=== PATIENT | female | born 1940 | race Caucasian/White ===

== ENCOUNTER 2018-07-06 20:26 | Inpatient (IN) | payer MEDICARE, MEDICAID ==
[~2018-07-06] VITALS: Ht 152.4 cm; Wt 36.4 kg
[~2018-07-06 20:26] MED LIST: ADV50100 IH; AMLO5TAB PO; CLOP75TA18 PO; HYDR-4353 PO; LEVO50TA67 PO; LOSA100T3 PO; METF500T PO; METF850T PO; MULT-342 PO; NITR0.4T SL; NITR0.4T51 SL; OMEP20CA10 PO; OXYC10TA57 PO; PANT-47 PO; PRAV10TA39 PO
[2018-07-06] MEDS ORDERED: normal saline 1000ml 1,000 ML IV ONE (20:35)
[2018-07-06] MEDS ORDERED: levoFLOXACIN-Levaquin 750MG/D5 150 ML IV ONE (20:35)
[2018-07-06 20:53] LABS: BASOPHILS % (AUTO) 0.4 % (0-1); EOSINOPHILS # (AUTO) 0.8 X10'3 (0-0.9); EOSINOPHILS % (AUTO) 10.3 % (0-6); HEMATOCRIT 37.6 % (35.0-45.0); HEMOGLOBIN 11.9 g/dl (12.0-16.0); LYMPHOCYTES # (AUTO) 2.4 X10'3 (1.1-4.8); LYMPHOCYTES % (AUTO) 29.3 % (21-51); MEAN CORPUSCULAR HEMOGLOBIN 24.9 PG (27.0-31.0); MEAN CORPUSCULAR HGB CONC 31.7 % (33.0-36.5); MEAN CORPUSCULAR VOLUME 78.5 FL (78-98); MEAN PLATELET VOLUME 8.4 FL (7.4-10.4); MONOCYTES # (AUTO) 0.9 X10'3 (0-0.9); MONOCYTES % (AUTO) 10.4 % (2-12); NEUTROPHILS # (AUTO) 4.1 X10'3 (1.8-7.7); NEUTROPHILS % (AUTO) 49.6 % (42-75); PLATELET COUNT 287 X10'3 (140-440); RED BLOOD COUNT 4.79 X10'6 (4.20-5.60); RED CELL DISTRIBUTION WIDTH 16.4 % (11.5-14.5); WHITE BLOOD COUNT 8.2 X10'3 (4.5-11.0)
[2018-07-06 21:15] LABS: ABG BASE EXCESS 0.4 mmol/L (-2.0-3.0); ABG HCO3 25.7 mmol/L (22.0-26.0); ABG OXYGEN SATURATION 97.8 % (95-98); ABG PCO2 (T) 43.3 mmHg (32.0-45.0); ABG PH (T) 7.389 (7.350-7.450); ABG PO2 (T) 107.2 mmHg (83-108); FCOHb 0.3 % (0.5-1.5); FLOW 2 L/min; FMetHb 0.1 % (0.3-1.12); FO2Hb 97.4 % (94-100); PATIENT TEMPERATURE 36.6; TOTAL HEMOGLOBIN 12.2 G/dl (12.0-16.0)
[2018-07-06 21:19] LABS: ALANINE AMINOTRANSFERASE 15 U/L (12-78); ALBUMIN 3.4 G/DL (3.4-5.0); ALKALINE PHOSPHATASE 113 IU/L (46-116); ANION GAP 5 (8-16); ASPARTATE AMINO TRANSFERASE 14 U/L (10-37); BILIRUBIN,TOTAL 0.3 MG/DL (0.1-1.0); BLOOD UREA NITROGEN 11 MG/DL (7-18); BUN/CREATININE RATIO 13.8 (6.6-38.0); CALCIUM 9.4 MG/DL (8.5-10.1); CHLORIDE 102 MMOL/L (99-107); GLUCOSE 238 MG/DL (70-104); MAGNESIUM 1.5 MG/DL (1.5-2.4); POTASSIUM 3.5 MMOL/L (3.5-5.1); SODIUM 140 MMOL/L (135-145); TOTAL PROTEIN 6.9 G/DL (6.4-8.2); eGFR 69 ML/MIN
[2018-07-06] MEDS ORDERED: methylPREDNISolone sod succ 125mg/2ml vial IV ONE (21:35)
[2018-07-06] MEDS ORDERED: albuterol 2.5 MG/3 ML nebule CONTNEB PRN (21:35)
[2018-07-06 21:36] LABS: PARTIAL THROMBOPLASTIN TIME 30 SECONDS (22-32); PROTHROMBIN TIME 10.5 SECONDS (9.0-12.0)
[2018-07-06 22:02] LABS: CLARITY,URINE CLEAR (Clear); COLOR,URINE YELLOW (Yellow); GLUCOSE, URINE 250 mg/dl (Neg); KETONES,URINE NEGATIVE (Neg); LEUKOCYTE ESTERASE ,URINE NEGATIVE (Neg); NITRITES, URINE NEGATIVE (Neg); OCCULT BLOOD,URINE NEGATIVE (Neg); PROTEIN,URINE NEGATIVE (Neg); UROBILINOGEN,URINE 0.2 E.U/dL (0.2-1.0)
[2018-07-06 22:08] LABS: UA COLLECTION TYPE STRAIGHT CATH
[2018-07-06] MEDS ORDERED: CARV3.126 PO (22:19)
[2018-07-06] MEDS ORDERED: mag hydrox/Alum hydrox/simeth 30ml oral suspension PO PRN (22:50)
[2018-07-06] MEDS ORDERED: ondansetron/PF 4mg/2ml inj IV PRN (22:50)
[2018-07-06] MEDS ORDERED: albuterol 2.5 MG/3 ML nebule NEB PRN (22:50)
[2018-07-06] MEDS ORDERED: magnesium hydroxide 30ml (MOM) UD suspension PO PRN (22:50)
[2018-07-06] MEDS ORDERED: acetaminophen 325mg tablet PO PRN (22:50)
[2018-07-06] MEDS ORDERED: glucagon, human recombinant 1mg kit SUBCUT PRN (22:55)
[2018-07-06] MEDS ORDERED: dextrose ORAL solution 15 GM/59 ML bottle PO PRN (22:55)
[2018-07-06] MEDS ORDERED: dextrose 50%-water 50ml dispensing syringe IV PRN ×2 (22:55)
[2018-07-06] MEDS ORDERED: MESSAGE TO PHARMACY PO ONE (22:55)
[2018-07-06] MEDS ORDERED: nitroGLYCERIN 0.4mg SUBLingual tab SL PRN (23:00)
[2018-07-06] MEDS: normal saline 1000ml 1,000 ML IV SCH (23:07)
[2018-07-06 23:16] LABS: HEMOGLOBIN A1C 7.4 % (4.5-6.2)
[2018-07-06 23:45] VITALS: BP 175/81
[2018-07-06] MEDS: HYDROcodone/acetaminophen 10/325mg tab PO SCH (23:58)
[2018-07-07 00:32] VITALS: BP 143/69
[2018-07-07] MEDS ORDERED: dextrose ORAL solution 15 GM/59 ML bottle PO PRN ×2 (00:35)
[2018-07-07] MEDS ORDERED: dextrose 50%-water 50ml dispensing syringe IV PRN ×2 (00:35)
[2018-07-07] MEDS ORDERED: insulin Lispro (HumaLOG) vial - multi-dose SQ SCH (00:35)
[2018-07-07] MEDS ORDERED: glucagon, human recombinant 1mg kit SUBCUT PRN (00:35)
[2018-07-07] MEDS ORDERED: albuterol 2.5 MG/3 ML nebule NEB SCH (03:00)
[2018-07-07] MEDS: HYDROcodone/acetaminophen 10/325mg tab PO SCH ×2 (04:00→08:00)
[2018-07-07 05:13] LABS: BASOPHILS % (AUTO) 0.3 % (0-1); EOSINOPHILS # (AUTO) 0.1 X10'3 (0-0.9); EOSINOPHILS % (AUTO) 1.5 % (0-6); HEMATOCRIT 36.5 % (35.0-45.0); HEMOGLOBIN 11.7 g/dl (12.0-16.0); LYMPHOCYTES # (AUTO) 0.7 X10'3 (1.1-4.8); MEAN CORPUSCULAR HEMOGLOBIN 25.1 PG (27.0-31.0); MEAN CORPUSCULAR VOLUME 78.6 FL (78-98); MEAN PLATELET VOLUME 9.1 FL (7.4-10.4); MONOCYTES # (AUTO) 0.1 X10'3 (0-0.9); MONOCYTES % (AUTO) 1.5 % (2-12); NEUTROPHILS # (AUTO) 5.1 X10'3 (1.8-7.7); NEUTROPHILS % (AUTO) 84.7 % (42-75); PLATELET COUNT 245 X10'3 (140-440); RED BLOOD COUNT 4.64 X10'6 (4.20-5.60); RED CELL DISTRIBUTION WIDTH 15.8 % (11.5-14.5)
[2018-07-07 05:49] LABS: ALANINE AMINOTRANSFERASE 14 U/L (12-78); ALBUMIN 3.4 G/DL (3.4-5.0); ALKALINE PHOSPHATASE 102 IU/L (46-116); ANION GAP 10 (8-16); ASPARTATE AMINO TRANSFERASE 14 U/L (10-37); BILIRUBIN,TOTAL 0.3 MG/DL (0.1-1.0); BLOOD UREA NITROGEN 10 MG/DL (7-18); BUN/CREATININE RATIO 11.8 (6.6-38.0); CHLORIDE 103 MMOL/L (99-107); CREATININE 0.85 MG/DL (0.40-0.90); GLUCOSE 253 MG/DL (70-104); SODIUM 142 MMOL/L (135-145); TOTAL CARBON DIOXIDE 29.5 MMOL/L (24-32); TOTAL PROTEIN 6.8 G/DL (6.4-8.2); eGFR 65 ML/MIN
[2018-07-07] MEDS ORDERED: magnesium 1gm/100ml D5W IVPB 100 ML IV PRN (06:05)
[2018-07-07] MEDS ORDERED: potassium Cl 20 mEq SR tablet PO PRN ×2 (06:05)
[2018-07-07] MEDS ORDERED: potassium Cl 40MEQ/NS 500ml 500 ML IV PRN (06:05)
[2018-07-07] MEDS ORDERED: magnesium 4gm in 100ml NS 100 ML IV PRN (06:05)
[2018-07-07 06:36] LABS: MAGNESIUM 1.4 MG/DL (1.5-2.4)
[2018-07-07] MEDS ORDERED: losartan 50mg tablet PO SCH (08:00)
[2018-07-07] MEDS ORDERED: oxyCODONE SR 10mg (sust. release) tab PO SCH (08:00)
[2018-07-07 08:09] VITALS: BP 132/60
[2018-07-07] MEDS ORDERED: albuterol 2.5 MG/3 ML nebule NEB PRN (08:10)
[2018-07-07] MEDS: heparin, porcine 5000 units/ml vial SQ SCH ×2 (08:18→21:27)
[2018-07-07] MEDS: methylPREDNISolone sod succ/PF 40mg inj. IV SCH ×2 (08:18→21:26)
[2018-07-07] MEDS: carVEDilol 3.125mg tablet PO SCH ×2 (08:20→21:25)
[2018-07-07] MEDS: amLODIPine 5mg tablet PO SCH (08:20)
[2018-07-07] MEDS: levoTHYROXINE 75mcg tablet PO SCH (08:20)
[2018-07-07] MEDS: insulin Lispro (HumaLOG) vial - multi-dose SQ SCH ×3 (08:47→19:33)
[2018-07-07] MEDS: potassium Cl 40MEQ/NS 500ml 500 ML IV PRN ×2 (08:53→17:16)
[2018-07-07] MEDS: magnesium Cl slow-release 64mg tablet PO PRN (08:54)
[2018-07-07] MEDS: BUDESONIDE 0.25 MG/2 ML AMPUL.NEB IH SCH ×2 (09:18→20:39)
[2018-07-07] MEDS ORDERED: HYDROcodone/acetaminophen 5mg/325mg tablet PO PRN (09:45)
[2018-07-07 11:00] VITALS: BP 123/56
[2018-07-07] MEDS: albuterol 2.5 MG/3 ML nebule NEB SCH ×2 (14:44→20:40)
[2018-07-07 18:00] VITALS: BP 118/55
[2018-07-07] MEDS ORDERED: insulin glargine (Lantus) pen - multi-dose SQ SCH (21:00)
[2018-07-07] MEDS: insulin glargine (Lantus) pen - multi-dose SQ SCH (21:21)
[2018-07-07] MEDS: atorvastatin 10mg tablet PO SCH (21:24)
[2018-07-07] MEDS: levoFLOXACIN-Levaquin 250mg/D5 50 ML IV SCH (22:41)
[2018-07-07 23:30] VITALS: BP 131/55
[2018-07-08] MEDS: magnesium Cl slow-release 64mg tablet PO PRN (01:41)
[2018-07-08] MEDS: albuterol 2.5 MG/3 ML nebule NEB SCH ×4 (02:47→20:29)
[2018-07-08] MEDS: normal saline 1000ml 1,000 ML IV SCH ×2 (03:03→23:45)
[2018-07-08 05:43] LABS: BASOPHILS % (AUTO) 0 % (0-1); EOSINOPHILS # (AUTO) 0.1 X10'3 (0-0.9); EOSINOPHILS % (AUTO) 1.4 % (0-6); HEMATOCRIT 31.5 % (35.0-45.0); HEMOGLOBIN 9.9 g/dl (12.0-16.0); LYMPHOCYTES # (AUTO) 0.6 X10'3 (1.1-4.8); LYMPHOCYTES % (AUTO) 6.3 % (21-51); MEAN CORPUSCULAR HEMOGLOBIN 24.9 PG (27.0-31.0); MEAN CORPUSCULAR HGB CONC 31.4 % (33.0-36.5); MEAN CORPUSCULAR VOLUME 79.4 FL (78-98); MEAN PLATELET VOLUME 9.1 FL (7.4-10.4); MONOCYTES # (AUTO) 0.4 X10'3 (0-0.9); MONOCYTES % (AUTO) 4.5 % (2-12); NEUTROPHILS # (AUTO) 8.7 X10'3 (1.8-7.7); NEUTROPHILS % (AUTO) 87.8 % (42-75); PLATELET COUNT 179 X10'3 (140-440); RED BLOOD COUNT 3.96 X10'6 (4.20-5.60); RED CELL DISTRIBUTION WIDTH 16.7 % (11.5-14.5); WHITE BLOOD COUNT 9.9 X10'3 (4.5-11.0)
[2018-07-08 06:05] LABS: ALANINE AMINOTRANSFERASE 12 U/L (12-78); ALBUMIN 2.8 G/DL (3.4-5.0); ALBUMIN/GLOBULIN RATIO 0.9 (1.1-1.5); ALKALINE PHOSPHATASE 90 IU/L (46-116); ANION GAP 5 (8-16); ASPARTATE AMINO TRANSFERASE 10 U/L (10-37); BILIRUBIN,TOTAL 0.2 MG/DL (0.1-1.0); BLOOD UREA NITROGEN 16 MG/DL (7-18); BUN/CREATININE RATIO 20.8 (6.6-38.0); CALCIUM 9.5 MG/DL (8.5-10.1); CHLORIDE 108 MMOL/L (99-107); CREATININE 0.77 MG/DL (0.40-0.90); GLUCOSE 217 MG/DL (70-104); MAGNESIUM 1.9 MG/DL (1.5-2.4); POTASSIUM 4.7 MMOL/L (3.5-5.1); SODIUM 142 MMOL/L (135-145); TOTAL CARBON DIOXIDE 29.1 MMOL/L (24-32); TOTAL PROTEIN 5.8 G/DL (6.4-8.2); eGFR 72 ML/MIN
[2018-07-08 07:00] VITALS: BP 142/58
[2018-07-08] MEDS: levoTHYROXINE 75mcg tablet PO SCH (07:35)
[2018-07-08] MEDS: carVEDilol 3.125mg tablet PO SCH ×2 (07:35→20:20)
[2018-07-08] MEDS: heparin, porcine 5000 units/ml vial SQ SCH ×2 (07:35→20:21)
[2018-07-08] MEDS: methylPREDNISolone sod succ/PF 40mg inj. IV SCH ×2 (07:35→20:21)
[2018-07-08] MEDS: losartan 50mg tablet PO SCH (07:35)
[2018-07-08] MEDS: amLODIPine 5mg tablet PO SCH (07:35)
[2018-07-08] MEDS: insulin Lispro (HumaLOG) vial - multi-dose SQ SCH ×3 (08:27→18:41)
[2018-07-08] MEDS: BUDESONIDE 0.25 MG/2 ML AMPUL.NEB IH SCH ×2 (08:52→20:29)
[2018-07-08 11:00] VITALS: BP 114/73
[2018-07-08 20:00] VITALS: BP 152/63
[2018-07-08] MEDS: dextrose ORAL solution 15 GM/59 ML bottle PO PRN (20:16)
[2018-07-08] MEDS: atorvastatin 10mg tablet PO SCH (20:20)
[2018-07-08] MEDS: insulin glargine (Lantus) pen - multi-dose SQ SCH (21:00)
[2018-07-08] MEDS: levoFLOXACIN-Levaquin 250mg/D5 50 ML IV SCH (21:55)
[2018-07-09] VITALS: BP 152/70
[2018-07-09] MEDS: albuterol 2.5 MG/3 ML nebule NEB SCH ×4 (02:32→19:57)
[2018-07-09 05:50] LABS: BASOPHILS % (AUTO) 0 % (0-1); EOSINOPHILS # (AUTO) 0.1 X10'3 (0-0.9); EOSINOPHILS % (AUTO) 1.7 % (0-6); HEMATOCRIT 35.8 % (35.0-45.0); HEMOGLOBIN 11.4 g/dl (12.0-16.0); LYMPHOCYTES # (AUTO) 0.6 X10'3 (1.1-4.8); LYMPHOCYTES % (AUTO) 7.4 % (21-51); MEAN CORPUSCULAR HGB CONC 31.9 % (33.0-36.5); MEAN CORPUSCULAR VOLUME 78.5 FL (78-98); MEAN PLATELET VOLUME 9.4 FL (7.4-10.4); MONOCYTES # (AUTO) 0.3 X10'3 (0-0.9); MONOCYTES % (AUTO) 3.4 % (2-12); NEUTROPHILS # (AUTO) 7.6 X10'3 (1.8-7.7); NEUTROPHILS % (AUTO) 87.5 % (42-75); PLATELET COUNT 186 X10'3 (140-440); RED BLOOD COUNT 4.56 X10'6 (4.20-5.60); RED CELL DISTRIBUTION WIDTH 16.7 % (11.5-14.5); WHITE BLOOD COUNT 8.7 X10'3 (4.5-11.0)
[2018-07-09 06:06] LABS: ALANINE AMINOTRANSFERASE 15 U/L (12-78); ALBUMIN 3.1 G/DL (3.4-5.0); ALBUMIN/GLOBULIN RATIO 0.9 (1.1-1.5); ALKALINE PHOSPHATASE 96 IU/L (46-116); ANION GAP 8 (8-16); ASPARTATE AMINO TRANSFERASE 13 U/L (10-37); BILIRUBIN,TOTAL 0.3 MG/DL (0.1-1.0); BLOOD UREA NITROGEN 15 MG/DL (7-18); CALCIUM 8.9 MG/DL (8.5-10.1); CHLORIDE 103 MMOL/L (99-107); GLUCOSE 264 MG/DL (70-104); MAGNESIUM 1.7 MG/DL (1.5-2.4); POTASSIUM 3.5 MMOL/L (3.5-5.1); SODIUM 140 MMOL/L (135-145); TOTAL CARBON DIOXIDE 29.4 MMOL/L (24-32); TOTAL PROTEIN 6.4 G/DL (6.4-8.2); eGFR 53 ML/MIN
[2018-07-09 07:18] VITALS: BP 167/66
[2018-07-09] MEDS: BUDESONIDE 0.25 MG/2 ML AMPUL.NEB IH SCH ×2 (07:27→19:57)
[2018-07-09] MEDS: levoTHYROXINE 75mcg tablet PO SCH (07:53)
[2018-07-09] MEDS: amLODIPine 5mg tablet PO SCH (07:53)
[2018-07-09] MEDS: carVEDilol 3.125mg tablet PO SCH ×2 (07:53→20:33)
[2018-07-09] MEDS: losartan 50mg tablet PO SCH (07:53)
[2018-07-09] MEDS: heparin, porcine 5000 units/ml vial SQ SCH ×2 (07:54→20:33)
[2018-07-09] MEDS: methylPREDNISolone sod succ/PF 40mg inj. IV SCH (08:17)
[2018-07-09] MEDS: insulin Lispro (HumaLOG) vial - multi-dose SQ SCH ×3 (08:22→18:33)
[2018-07-09 12:10] VITALS: BP 156/75
[2018-07-09] MEDS: normal saline 1000ml 1,000 ML IV SCH (17:46)
[2018-07-09 20:00] VITALS: BP 162/67
[2018-07-09] MEDS: lactobacillus rhamnosus 10,000 MMU CELLS/CAPSULE PO SCH (20:33)
[2018-07-09] MEDS: atorvastatin 10mg tablet PO SCH (20:33)
[2018-07-09] MEDS: insulin glargine (Lantus) pen - multi-dose SQ SCH (20:36)
[2018-07-10] VITALS (7 sets, daily range): BP systolic 139–163; BP diastolic 70–76
[2018-07-10] MEDS: albuterol 2.5 MG/3 ML nebule NEB SCH ×4 (02:00→19:51)
[2018-07-10 05:34] LABS: BASOPHILS % (AUTO) 0.2 % (0-1); EOSINOPHILS # (AUTO) 0.2 X10'3 (0-0.9); EOSINOPHILS % (AUTO) 1.4 % (0-6); HEMATOCRIT 35.6 % (35.0-45.0); HEMOGLOBIN 11.3 g/dl (12.0-16.0); LYMPHOCYTES # (AUTO) 4.1 X10'3 (1.1-4.8); LYMPHOCYTES % (AUTO) 31.9 % (21-51); MEAN CORPUSCULAR HEMOGLOBIN 24.7 PG (27.0-31.0); MEAN CORPUSCULAR HGB CONC 31.7 % (33.0-36.5); MEAN CORPUSCULAR VOLUME 77.9 FL (78-98); MEAN PLATELET VOLUME 9.2 FL (7.4-10.4); MONOCYTES # (AUTO) 1.2 X10'3 (0-0.9); MONOCYTES % (AUTO) 9.3 % (2-12); NEUTROPHILS # (AUTO) 7.3 X10'3 (1.8-7.7); NEUTROPHILS % (AUTO) 57.2 % (42-75); PLATELET COUNT 235 X10'3 (140-440); RED BLOOD COUNT 4.57 X10'6 (4.20-5.60); RED CELL DISTRIBUTION WIDTH 16.5 % (11.5-14.5); WHITE BLOOD COUNT 12.7 X10'3 (4.5-11.0)
[2018-07-10 05:48] LABS: ALANINE AMINOTRANSFERASE 12 U/L (12-78); ALBUMIN 2.8 G/DL (3.4-5.0); ALKALINE PHOSPHATASE 84 IU/L (46-116); ANION GAP 4 (8-16); ASPARTATE AMINO TRANSFERASE 9 U/L (10-37); BILIRUBIN,TOTAL 0.3 MG/DL (0.1-1.0); BLOOD UREA NITROGEN 14 MG/DL (7-18); BUN/CREATININE RATIO 21.5 (6.6-38.0); CHLORIDE 105 MMOL/L (99-107); CREATININE 0.65 MG/DL (0.40-0.90); GLUCOSE 56 MG/DL (70-104); MAGNESIUM 1.7 MG/DL (1.5-2.4); POTASSIUM 3.1 MMOL/L (3.5-5.1); SODIUM 142 MMOL/L (135-145); TOTAL CARBON DIOXIDE 33.3 MMOL/L (24-32); TOTAL PROTEIN 5.7 G/DL (6.4-8.2); eGFR 88 ML/MIN
[2018-07-10] MEDS: dextrose ORAL solution 15 GM/59 ML bottle PO PRN (07:07)
[2018-07-10] MEDS: levoTHYROXINE 75mcg tablet PO SCH (07:32)
[2018-07-10] MEDS: BUDESONIDE 0.25 MG/2 ML AMPUL.NEB IH SCH ×2 (08:14→19:51)
[2018-07-10] MEDS: lactobacillus rhamnosus 10,000 MMU CELLS/CAPSULE PO SCH ×2 (08:41→21:05)
[2018-07-10] MEDS: losartan 50mg tablet PO SCH (08:41)
[2018-07-10] MEDS: carVEDilol 3.125mg tablet PO SCH ×2 (08:41→21:04)
[2018-07-10] MEDS: predniSONE 20 mg tablet PO SCH (08:41)
[2018-07-10] MEDS: amLODIPine 5mg tablet PO SCH (08:41)
[2018-07-10] MEDS: heparin, porcine 5000 units/ml vial SQ SCH ×2 (08:42→21:05)
[2018-07-10] MEDS: levoFLOXACIN 250mg tablet PO SCH (10:50)
[2018-07-10] MEDS ORDERED: magnesium 1gm/100ml D5W IVPB 100 ML IV PRN (11:30)
[2018-07-10] MEDS ORDERED: magnesium 4gm in 100ml NS 100 ML IV PRN (11:30)
[2018-07-10] MEDS ORDERED: potassium Cl 20 mEq SR tablet PO PRN (11:30)
[2018-07-10] MEDS ORDERED: potassium Cl 40MEQ/NS 500ml 500 ML IV PRN ×2 (11:30)
[2018-07-10] MEDS ORDERED: magnesium Cl slow-release 64mg tablet PO PRN (11:30)
[2018-07-10] MEDS: potassium Cl 20 mEq SR tablet PO PRN ×3 (11:55→21:04)
[2018-07-10] MEDS ORDERED: albuterol 2.5 MG/3 ML nebule NEB ONE (12:35)
[2018-07-10] MEDS: insulin Lispro (HumaLOG) vial - multi-dose SQ SCH ×2 (13:38→19:19)
[2018-07-10] MEDS: normal saline 1000ml 1,000 ML IV SCH (15:17)
[2018-07-10] MEDS: insulin glargine (Lantus) pen - multi-dose SQ SCH (21:04)
[2018-07-10] MEDS: atorvastatin 10mg tablet PO SCH (21:05)
[2018-07-11] MEDS: albuterol 2.5 MG/3 ML nebule NEB SCH ×2 (01:56→07:04)
[2018-07-11 05:51] LABS: BASOPHILS % (AUTO) 0.2 % (0-1); EOSINOPHILS # (AUTO) 0.2 X10'3 (0-0.9); EOSINOPHILS % (AUTO) 1.8 % (0-6); HEMATOCRIT 36.2 % (35.0-45.0); HEMOGLOBIN 11.6 g/dl (12.0-16.0); LYMPHOCYTES # (AUTO) 3.2 X10'3 (1.1-4.8); LYMPHOCYTES % (AUTO) 36.6 % (21-51); MEAN CORPUSCULAR HGB CONC 32.2 % (33.0-36.5); MEAN CORPUSCULAR VOLUME 77.6 FL (78-98); MEAN PLATELET VOLUME 9.3 FL (7.4-10.4); MONOCYTES # (AUTO) 0.8 X10'3 (0-0.9); MONOCYTES % (AUTO) 9.6 % (2-12); NEUTROPHILS # (AUTO) 4.5 X10'3 (1.8-7.7); NEUTROPHILS % (AUTO) 51.8 % (42-75); PLATELET COUNT 181 X10'3 (140-440); RED BLOOD COUNT 4.67 X10'6 (4.20-5.60); RED CELL DISTRIBUTION WIDTH 16.5 % (11.5-14.5); WHITE BLOOD COUNT 8.8 X10'3 (4.5-11.0)
[2018-07-11 06:19] LABS: ALANINE AMINOTRANSFERASE 15 U/L (12-78); ALBUMIN 2.7 G/DL (3.4-5.0); ALBUMIN/GLOBULIN RATIO 0.9 (1.1-1.5); ALKALINE PHOSPHATASE 82 IU/L (46-116); ANION GAP 4 (8-16); ASPARTATE AMINO TRANSFERASE 10 U/L (10-37); BILIRUBIN,TOTAL 0.4 MG/DL (0.1-1.0); BLOOD UREA NITROGEN 16 MG/DL (7-18); BUN/CREATININE RATIO 21.1 (6.6-38.0); CALCIUM 9.3 MG/DL (8.5-10.1); CHLORIDE 105 MMOL/L (99-107); CREATININE 0.76 MG/DL (0.40-0.90); GLUCOSE 109 MG/DL (70-104); POTASSIUM 4.1 MMOL/L (3.5-5.1); SODIUM 141 MMOL/L (135-145); TOTAL CARBON DIOXIDE 31.9 MMOL/L (24-32); TOTAL PROTEIN 5.6 G/DL (6.4-8.2); eGFR 73 ML/MIN
[2018-07-11 07:00] VITALS: BP 157/74
[2018-07-11] MEDS: BUDESONIDE 0.25 MG/2 ML AMPUL.NEB IH SCH (07:04)
[2018-07-11] MEDS: amLODIPine 5mg tablet PO SCH (08:13)
[2018-07-11] MEDS: levoTHYROXINE 75mcg tablet PO SCH (08:13)
[2018-07-11] MEDS: carVEDilol 3.125mg tablet PO SCH (08:13)
[2018-07-11] MEDS: predniSONE 20 mg tablet PO SCH (08:13)
[2018-07-11] MEDS: losartan 50mg tablet PO SCH (08:13)
[2018-07-11] MEDS: lactobacillus rhamnosus 10,000 MMU CELLS/CAPSULE PO SCH (08:13)
[2018-07-11] MEDS: heparin, porcine 5000 units/ml vial SQ SCH (08:14)
[2018-07-11] MEDS ORDERED: ALBU8.5H8 INH (09:26)
[2018-07-11] MEDS ORDERED: LEVO250T58 PO (09:26)
[2018-07-11] MEDS ORDERED: TIOT18CA3 IH (09:26)
[2018-07-11] MEDS ORDERED: PRED20TA PO (09:26)
[2018-07-11] MEDS ORDERED: GUAI600T45 PO (09:26)
[2018-07-11] MEDS: levoFLOXACIN 250mg tablet PO SCH (11:12)
== END 2018-07-11 11:20 | disposition home or self-care (01) | DRG 190 ==
LOC: ER 20:27 → ED HOLD 22:50 → SUR 3N 23:26
PROVIDERS: ADMIT Internal Medicine; ATTEND Internal Medicine
DX: J44.1 Chronic obstructive pulmonary disease with (acute) exacerbation (principal); E43 Unspecified severe protein-calorie malnutrition; Z68.1 Body mass index [BMI] 19.9 or less, adult; J96.11 Chronic respiratory failure with hypoxia; E87.6 Hypokalemia; E83.42 Hypomagnesemia; D63.8 Anemia in other chronic diseases classified elsewhere; E03.9 Hypothyroidism, unspecified; R41.89 Other symptoms and signs involving cognitive functions and awareness; R11.2 Nausea with vomiting, unspecified; E11.9 Type 2 diabetes mellitus without complications; E78.5 Hyperlipidemia, unspecified; I10 Essential (primary) hypertension; Z90.3 Acquired absence of stomach [part of]; Z99.81 Dependence on supplemental oxygen; Z79.899 Other long term (current) drug therapy; Z85.028 Personal history of other malignant neoplasm of stomach; Z86.73 Personal history of transient ischemic attack (TIA), and cerebral infarction without residual deficits; Z87.01 Personal history of pneumonia (recurrent); Z87.891 Personal history of nicotine dependence
CPT/HCPCS: 36415; 36600; 71045; 80053; 81003; 82803; 82948; 83036; 83605; 83735; 84132; 84145; 85018; 85025; 85610; 85730; 87040; 87070; 87502; 87503; 93005; 94640; 94760; 97116; 97162; 97530; G0378; J1644; J1815; J1956; J2405; J2920; J2930; J3480; J7030; J7512